=== PATIENT | male | born 1945 | race Two or more races ===

== ENCOUNTER 2023-06-24 08:44 | Inpatient (IN) | payer OTHER ==
[~2023-06-24] VITALS: Ht 165.1 cm; Wt 60.2 kg
[2023-06-24 09:11] LABS: Basophils # (auto) 0 10 ^3/uL (0-0.2); Eosinophils # (auto) 0.2 10 ^3/uL (0-0.8); Hematocrit 33.9 % (41.0-53.0); Monocytes # (auto) 0.5 10 ^3/uL (0-1.3); Neutrophils # (auto) 4.1 10 ^3/uL (1.6-8.6); Red Blood Cells 4.26 10^6/uL (4.5-5.90)
[2023-06-24 09:12] LABS: Basophils % (auto) 0.5 % (0.0-2.0); Eosinophils % (auto) 3.7 % (0.0-7.0); Hemoglobin 10.9 g/dL (13.5-17.5); Lymphocytes # (auto) 1.4 10 ^3/uL (0.4-5.4); Lymphocytes % (auto) 22.7 % (10.0-50.0); Mean Corpuscular Hemoglobin 25.5 pg (28.0-32.0); Mean Corpuscular Volume 79.7 fL (80.0-100.0); Monocytes % (auto) 7.6 % (0.0-12.0); Neutrophils % (auto) 65.5 % (37.0-80.0); Nucleated Red Blood Cells % 0.1 %; Red Cell Distribution Width 16.6 % (11.8-14.3); White Blood Cell 6.2 10^3/uL (4.4-10.8)
[2023-06-24 09:22] LABS: Chloride 106 mmol/L (98-107); Sodium 139 mmol/L (136-145)
[2023-06-24 09:23] LABS: Anion Gap 5 (5-15); Calcium 9.6 mg/dL (8.5-10.1); Carbon Dioxide 28 mmol/L (20-30)
[2023-06-24 09:28] LABS: BUN/Creatinine Ratio 15.7 (10.0-20.0); Blood Urea Nitrogen 14 mg/dL (9-23); Glucose 181 mg/dL (74-106)
[2023-06-24 09:29] LABS: Blood Alcohol < 3.0 mg/dL (<10)
[2023-06-24 09:37] LABS: INR 1.05 (0.9-1.15); Partial Thromboplastin Time 29.4 SEC (24.5-34.5)
[2023-06-24 09:54] VITALS: PULSE 51; RESP 17; O2SAT 95
[2023-06-24 10:12] LABS: Magnesium 1.4 mg/dL (1.6-2.6)
[2023-06-24 11:42] LABS: Urine Epithelial Cast None Seen /hpf (<5)
[2023-06-24 12:06] LABS: Urine Bacteria NONE SEEN /hpf (None Seen); Urine Blood TRACE /uL (Negative); Urine Clarity Clear (Clear); Urine Color Yellow (Yellow); Urine Protein, UAD TRACE (Negative); Urine Specific Gravity 1.019 (1.001-1.035); Urine Urobilinogen Normal (Negative); Urine WBC <1 /hpf (0 - 3); Urine pH 6.5 (5.0-8.0)
[2023-06-24 12:17] LABS: Amphetamine Screen, Urine Neg (NEGATIVE)
[2023-06-24 12:18] LABS: Barbiturate Scree,Urine Neg (NEGATIVE); Benzodiazephine Screen, Urine Neg (NEGATIVE); Cannabinoid Screen, Urine Neg (NEGATIVE); Cocaine Screen, Urine Neg (NEGATIVE); Opiate Scree,Urine Neg (NEGATIVE); Phencyclidine Screen, Urine Neg (NEGATIVE)
[2023-06-24] MEDS ORDERED: hydrALAZINE HCL 20 MG/ML VL IV ONE (17:00)
[2023-06-24 19:30] VITALS: PULSE 73; RESP 19; O2SAT 97
[2023-06-24] MEDS: SODIUM CHLORIDE 0.9% 1,000 ML IV SCH (19:45)
[2023-06-24 20:25] LABS: LDL Cholesterol 76 mg/dL (< 100); Triglycerides 85 mg/dL (< 150)
[2023-06-24 20:27] LABS: Cholesterol 147 mg/dL (< 200); HDL Cholesterol 57 mg/dL (40-59)
[2023-06-24] MEDS ORDERED: HYDROcodone-ACET 5/325MG TAB PO PRN (20:45)
[2023-06-24] MEDS ORDERED: ONDANSETRON HCL 4 MG/2 ML VIAL IV PRN (20:45)
[2023-06-24] MEDS ORDERED: ACETAMINOPHEN 325 MG TAB PO PRN (20:45)
[2023-06-24] MEDS ORDERED: DOCUSATE SOD 100 MG CAP PO PRN (20:45)
[2023-06-24] MEDS: SODIUM CHLOR 0.9% PF (SALINE LOCK) 10ML VIAL/SYR IV SCH (21:22)
[2023-06-24] MEDS ORDERED: LISI2.5T47 PO (22:42)
[2023-06-24] MEDS ORDERED: FINA5TAB4 PO (22:42)
[2023-06-24] MEDS ORDERED: TAMS-35 PO (22:42)
[2023-06-24] MEDS ORDERED: GABA-1250 PO (22:42)
[2023-06-24] MEDS ORDERED: DEXTROSE (50%) 50ML SYRG IV PRN (22:45)
[2023-06-25] VITALS (17 sets, daily range): BP systolic 125–174; BP diastolic 48–88; PULSE 50–92; RESP 15–21; TEMP 97.8–98.2; O2SAT 95–100
[2023-06-25] MEDS ORDERED: ROSU40TA81 PO (01:37)
[2023-06-25] MEDS ORDERED: PIOG15TA25 PO (01:37)
[2023-06-25] MEDS ORDERED: LISI2.5T47 PO (01:37)
[2023-06-25] MEDS ORDERED: ATOR10TA52 PO (01:45)
[2023-06-25] MEDS ORDERED: BENA40TA70 PO (01:46)
[2023-06-25] MEDS ORDERED: MAGN200T11 PO (01:47)
[2023-06-25] MEDS ORDERED: GLUC-149 VI (01:48)
[2023-06-25] MEDS ORDERED: SILD-60 PO (01:49)
[2023-06-25] MEDS ORDERED: IOHEXOL 350 MG/ML 100ML IJ ONE (02:52)
[2023-06-25] MEDS: SODIUM CHLOR 0.9% PF (SALINE LOCK) 10ML VIAL/SYR IV SCH ×3 (05:20→22:00)
[2023-06-25] MEDS: InsuLIN REG 1unit/0.01ml Soln (100units/ml) SC SCH ×4 (05:26→22:22)
[2023-06-25] MEDS: ACCU-CHEK COMFORT CURVE STRIP VI SCH ×4 (05:26→22:22)
[2023-06-25] MEDS ORDERED: ATORVASTATIN 20 MG TAB PO SCH (10:00)
[2023-06-25] MEDS: ASPirin 81 mg TAB PO SCH (10:41)
[2023-06-25] MEDS: SODIUM CHLORIDE 0.9% 1,000 ML IV SCH (12:01)
[2023-06-25] MEDS ORDERED: MIDAZOLAM HCL 5 MG/ML-1ML VIAL IV ONE (15:00)
[2023-06-25] MEDS ORDERED: fentaNYL CITRATE 100 MCG/2 ML VL IV ONE (15:00)
[2023-06-25] MEDS ORDERED: LIDOCAINE VISCOUS 2% 15ML UD PO ONE (15:00)
[2023-06-25] MEDS ORDERED: MIDAZOLAM HCL 2MG/2ML 2ml VIAL (1mg/ml) ONE (16:17)
[2023-06-25] MEDS: CLOPIDOGREL BISULFATE 75 MG TAB PO SCH (19:15)
[2023-06-25] MEDS: ATORVASTATIN 20 MG TAB PO SCH (21:53)
[2023-06-26] VITALS (8 sets, daily range): BP systolic 114–182; BP diastolic 48–70; PULSE 48–74; RESP 14–20; TEMP 97.8–98.8; O2SAT 95–98
[2023-06-26] MEDS: SODIUM CHLORIDE 0.9% 1,000 ML IV SCH ×2 (00:21→09:51)
[2023-06-26] MEDS: SODIUM CHLOR 0.9% PF (SALINE LOCK) 10ML VIAL/SYR IV SCH ×3 (06:00→21:18)
[2023-06-26] MEDS: InsuLIN REG 1unit/0.01ml Soln (100units/ml) SC SCH ×4 (07:00→21:18)
[2023-06-26] MEDS: ACCU-CHEK COMFORT CURVE STRIP VI SCH ×4 (07:27→21:17)
[2023-06-26] MEDS: ASPirin 81 mg TAB PO SCH (09:15)
[2023-06-26] MEDS: CLOPIDOGREL BISULFATE 75 MG TAB PO SCH (09:15)
[2023-06-26] MEDS: cloNIDine HCL 0.1 MG TAB PO PRN (18:43)
[2023-06-26] MEDS: ATORVASTATIN 20 MG TAB PO SCH (21:17)
[2023-06-27] VITALS (8 sets, daily range): BP systolic 127–177; BP diastolic 31–59; PULSE 39–53; RESP 15–19; TEMP 97.3–98.1; O2SAT 93–100
[2023-06-27] MEDS: SODIUM CHLORIDE 0.9% 1,000 ML IV SCH ×2 (06:26→19:15)
[2023-06-27] MEDS: InsuLIN REG 1unit/0.01ml Soln (100units/ml) SC SCH ×4 (06:26→21:26)
[2023-06-27] MEDS: SODIUM CHLOR 0.9% PF (SALINE LOCK) 10ML VIAL/SYR IV SCH ×3 (06:26→21:26)
[2023-06-27] MEDS: ACCU-CHEK COMFORT CURVE STRIP VI SCH ×4 (06:26→21:26)
[2023-06-27] MEDS: CLOPIDOGREL BISULFATE 75 MG TAB PO SCH (09:00)
[2023-06-27] MEDS: ASPirin 81 mg TAB PO SCH (09:00)
[2023-06-27] MEDS: cloNIDine HCL 0.1 MG TAB PO PRN (11:58)
[2023-06-27] MEDS ORDERED: hydrALAZINE HCL 20 MG/ML VL IV PRN (21:15)
[2023-06-27] MEDS: ATORVASTATIN 20 MG TAB PO SCH (21:26)
[2023-06-27 21:36] LABS: Chloride 110 mmol/L (98-107); Potassium 4.9 mmol/L (3.5-5.1); Sodium 142 mmol/L (136-145)
[2023-06-27 21:37] LABS: Anion Gap 5 (5-15); Carbon Dioxide 27 mmol/L (20-30)
[2023-06-27 21:42] LABS: BUN/Creatinine Ratio 15.1 (10.0-20.0); Blood Urea Nitrogen 13 mg/dL (9-23); Glucose 139 mg/dL (74-106)
[2023-06-28] VITALS (7 sets, daily range): BP systolic 129–166; BP diastolic 36–136; PULSE 44–83; RESP 17–20; TEMP 36.6; O2SAT 95–97
[2023-06-28] MEDS: SODIUM CHLOR 0.9% PF (SALINE LOCK) 10ML VIAL/SYR IV SCH ×2 (05:58→14:00)
[2023-06-28] MEDS: InsuLIN REG 1unit/0.01ml Soln (100units/ml) SC SCH ×2 (06:27→11:30)
[2023-06-28] MEDS: ACCU-CHEK COMFORT CURVE STRIP VI SCH ×2 (06:27→11:30)
[2023-06-28] MEDS: SODIUM CHLORIDE 0.9% 1,000 ML IV SCH (09:40)
[2023-06-28] MEDS: ASPirin 81 mg TAB PO SCH (09:46)
[2023-06-28] MEDS: CLOPIDOGREL BISULFATE 75 MG TAB PO SCH (09:46)
[2023-06-28] MEDS ORDERED: NIFEdipine ER 30 MG TAB PO SCH (10:00)
[2023-06-28] MEDS ORDERED: ASPI-325 PO (11:32)
[2023-06-28] MEDS ORDERED: CLOP75TA70 PO (11:32)
[2023-06-28] MEDS ORDERED: NIFE1TAB30 PO (11:33)
== END 2023-06-28 16:30 | disposition home health service (06) | DRG 64 ==
LOC: ER 08:44 → EDBD 08:44 → TELE 20:48 → TELE-WESTW 22:49
PROVIDERS: ADMIT Internal Medicine; ATTEND Internal Medicine Geriatric Medicine
PROC: B24BZZ4 Ultrasonography of Heart with Aorta, Transesophageal (ICD-10-PCS; principal; 2023-06-25)
DX: I63.9 Cerebral infarction, unspecified (principal); I62.03 Nontraumatic chronic subdural hemorrhage; G96.08 Other cranial cerebrospinal fluid leak; I65.23 Occlusion and stenosis of bilateral carotid arteries; D64.9 Anemia, unspecified; I10 Essential (primary) hypertension; E11.9 Type 2 diabetes mellitus without complications; E78.00 Pure hypercholesterolemia, unspecified; H02.401 Unspecified ptosis of right eyelid; G25.0 Essential tremor; I70.0 Atherosclerosis of aorta; G20.A1 Parkinson's disease without dyskinesia, without mention of fluctuations; H53.8 Other visual disturbances; R26.9 Unspecified abnormalities of gait and mobility; Z79.82 Long term (current) use of aspirin; Z79.899 Other long term (current) drug therapy; Z82.49 Family history of ischemic heart disease and other diseases of the circulatory system; Z83.3 Family history of diabetes mellitus; Z86.73 Personal history of transient ischemic attack (TIA), and cerebral infarction without residual deficits
CPT/HCPCS: 36415; 70450; 70496; 70551; 72125; 80048; 80061; 80307; 80320; 81001; 82962; 83735; 85025; 85610; 85730; 92610; 93005; 93312; 97110; 97116; 97163; 97530; 99152; G0378; J1815; J2250